=== PATIENT | male | born 1960 | race Caucasian/White ===

== ENCOUNTER 2016-10-02 21:05 | Emergency (ER) | payer OTHER ==
[2016-10-02 21:12] VITALS: BP 144/88; PULSE 109; RESP 20; TEMP 98; O2SAT 100
--- NOTE | 2016-10-02 21:18 | PD ---
Physical Exam Time Seen by Provider: 21:15 Narrative 56yo M c/o RLQ abd pain for multiple years. Has had many surgeries and workups. Says he needs standing CT scan. Patient seen in triage. VS reviewed. Awaiting bed placement. Data Data Last Documented VS Vital Signs Date Time Temp Pulse Resp B/P Pulse Ox O2 Delivery O2 Flow Rate FiO2 10/02/16 21:12 98.0 109 20 144/88 100 Room Air MDM Supervised Visit with MIK: Suzette Gonzalez Oct 02, 2016 21:18
[2016-10-02] MEDS ORDERED: LORazepam 2 MG/ML VIAL IV PUSH ONE (21:45)
[2016-10-02] MEDS ORDERED: MORPHINE SULFATE 4 MG/ML INJ IV PUSH ONE (21:45)
[2016-10-02] MEDS ORDERED: SODIUM CHLORIDE 0.9% FLUSH 10 ML FLUSH IV FLUSH PRN (21:45)
[2016-10-02] MEDS ORDERED: ONDANSETRON HCL 4 MG/2 ML VIAL IVP ONE (21:45)
--- NOTE | 2016-10-02 21:48 | PD ---
HPI Chief Complaint: Abdominal Pain Time Seen by Provider: 21:25 Travel History International Travel<30 days: No Contact w/Intl Traveler<30days: No Traveled to known affect area: No History of Present Illness HPI 56yo M with PMH of anxiety presents to the ED with c/o right lower abdominal pain for 13 years. States he had hernia repair 13 years ago and is requesting to take the mesh out. Pt has seen general surgery, GI, and had full workups. Occasional nausea and vomiting. Denies any fever, chest pain, sob, focal weakness or numbness. Pt was referred to pain management from general surgery and has appointment next week. PFSH Past Medical History Inguinal Hernia: Yes (R with repair) ?: Not Past Surgical History Abdominal Surgery: Yes (choly, hernia mesh repair) Social History Alcohol Use: No Tobacco Use: No Substance Use: No Allergies-Medications (Allergen,Severity, Reaction): Coded Allergies: No Known Allergies (Unverified , 10/02/16) Reported Meds & Prescriptions Reported Meds & Active Scripts Active No Active Prescriptions or Reported Medications Review of Systems Except as stated in HPI: all other systems reviewed are Neg Physical Exam Narrative GENERAL: 56yo M in mild distress. SKIN: Focused skin assessment warm/dry. HEAD: Atraumatic. Normocephalic. EYES: Pupils equal and round. No scleral icterus. No injection or drainage. ENT: No nasal bleeding or discharge. Mucous membranes pink and moist. NECK: Trachea midline. No JVD. CARDIOVASCULAR: Regular rate and rhythm. No murmur appreciated. RESPIRATORY: No accessory muscle use. Clear to auscultation. Breath sounds equal bilaterally. GASTROINTESTINAL: Abdomen soft, +RLQ ttp. No rebound tenderness or guarding. MUSCULOSKELETAL: No obvious deformities. No clubbing. No cyanosis. No edema. NEUROLOGICAL: Awake and alert. No obvious cranial nerve deficits. Motor grossly within normal limits. Normal speech. PSYCHIATRIC: Appropriate mood and affect; insight and judgment normal. Data Data Last Documented VS Vital Signs Date Time Temp Pulse Resp B/P Pulse Ox O2 Delivery O2 Flow Rate FiO2 10/03/16 01:22 80 18 132/76 100 Room Air 10/02/16 21:12 98.0 Orders Complete Blood Count With Diff (10/02/16 21:40) Comprehensive Metabolic Panel (10/02/16 21:40) Lipase (10/02/16 21:40) Urinalysis - C+S If Indicated (10/02/16 21:40) Iv Access Insert/Monitor (10/02/16 21:40) Ecg Monitoring (10/02/16 21:40) Oximetry (10/02/16 21:40) Morphine Inj (Morphine Inj) (10/02/16 21:45) Ondansetron Inj (Zofran Inj) (10/02/16 21:45) Sodium Chloride 0.9% Flush (Ns Flush) (10/02/16 21:45) Lorazepam Inj (Ativan Inj) (10/02/16 21:45) Potassium Chloride (Kcl) (10/03/16 00:15) Magnesium Sulfate 1 Gm Premix (Magnesium (10/03/16 00:15) Ct Abd/Pel W Iv Contrast(Rout) (10/03/16 ) Iohexol 350 Inj (Omnipaque 350 Inj) (10/03/16 00:29) Labs Laboratory Tests Test 10/02/16 22:00 White Blood Count 8.3 TH/MM3 Red Blood Count 4.89 MIL/MM3 Hemoglobin 14.5 GM/DL Hematocrit 41.3 % Mean Corpuscular Volume 84.5 FL Mean Corpuscular Hemoglobin 29.6 PG Mean Corpuscular Hemoglobin 35.0 % Concent Red Cell Distribution Width 13.3 % Platelet Count 295 TH/MM3 Mean Platelet Volume 7.8 FL Neutrophils (%) (Auto) 60.7 % Lymphocytes (%) (Auto) 30.4 % Monocytes (%) (Auto) 8.2 % Eosinophils (%) (Auto) 0.1 % Basophils (%) (Auto) 0.6 % Neutrophils # (Auto) 5.0 TH/MM3 Lymphocytes # (Auto) 2.5 TH/MM3 Monocytes # (Auto) 0.7 TH/MM3 Eosinophils # (Auto) 0.0 TH/MM3 Basophils # (Auto) 0.1 TH/MM3 CBC Comment DIFF FINAL Differential Comment Urine Color LIGHT-YELLOW Urine Turbidity CLEAR Urine pH 7.0 Urine Specific [place] 1.002 Urine Protein NEG mg/dL Urine Glucose (UA) NEG mg/dL Urine Ketones NEG mg/dL Urine Occult Blood NEG Urine Nitrite NEG Urine Bilirubin NEG Urine Urobilinogen LESS THAN 2.0 MG/DL Urine Leukocyte Esterase NEG Urine WBC 1 /hpf Microscopic Urinalysis Comment CULT NOT INDICATED Sodium Level 141 MEQ/L Potassium Level 2.9 MEQ/L Chloride Level 106 MEQ/L Carbon Dioxide Level 23.1 MEQ/L Anion Gap 12 MEQ/L Blood Urea Nitrogen 7 MG/DL Creatinine 0.77 MG/DL Estimat Glomerular Filtration 105 ML/MIN Rate Random Glucose 88 MG/DL Calcium Level 9.1 MG/DL Total Bilirubin 0.4 MG/DL Aspartate Amino Transf 16 U/L (AST/SGOT) Alanine Aminotransferase 29 U/L (ALT/SGPT) Alkaline Phosphatase 88 U/L Total Protein 8.1 GM/DL Albumin 3.9 GM/DL Lipase 105 U/L [facility] Medical Decision Making Medical Screen Exam Complete: Yes Emergency Medical Condition: Yes Differential Diagnosis Malingering vs. anxiety vs. colitis vs. appendicitis (very unlikely) Narrative Course 56yo M with chronic abdominal pain. Pt is very anxious and usually goes to [place] and has never been to this hospital before. Pt is very tender on exam and since he has never had any imaging here, will obtain CTa/p. Labs reviewed, no leukocytosis. Hypokalemia at 2.9. 60mEq KCl PO given. Pt empirically given magnesium sulfate 1gm IV. LFTs normal. Lipase normal. Pt tolerating PO. Instructed pt to eat potassium rich food. UA negative. CT abd /pelvis showed normal exam post cholecystectomy. Appendix is normal. Pt given morphine 4mg, zofran and ativan. States pain has improved. Pt has appointment with pain management next week. Return precautions given. Diagnosis Primary Impression: Abdominal pain Qualified Code: R10.31 - Right lower quadrant abdominal pain Additional Impression: Hypokalemia Patient Instructions: General Instructions Departure Forms: Tests/Procedures Additional Instructions: Please follow up with your pain management physician. Please eat potassium rich food. Please return to the ED if symptoms worsen. Med/Other Pt SpecificInfo: Prescription(s) given Scripts Ibuprofen 400 Mg [id number] Mg PO Q8H PRN (PAIN SCALE 1 TO 4) #20 TAB Ref 0 Prov:Krystin Munoz 10/03/16 Disposition: 01 DISCHARGE HOME Condition: Stable Krystin Munoz DO Oct 02, 2016 21:48
[2016-10-02 22:19] LABS: BASOPHIL # 0.1 TH/MM3 (0-0.2); BASOPHIL % 0.6 % (0.0-2.0); BLOOD, URINE NEG (NEG); COMMENT (UR) CULT NOT INDICATED; CULTURE IF INDICATED CULT NOT INDICATED; EOSINOPHIL % 0.1 % (0.0-4.0); GLUCOSE,URINE NEG (NEG); HEMATOCRIT 41.3 % (39.0-51.0); HEMO FLAGS DIFF FINAL; KETONE, URINE NEG (NEG); LYMPH % 30.4 % (9.0-44.0); LYMPHOCYTE # 2.5 TH/MM3 (1.0-4.8); MEAN CELL VOLUME 84.5 FL (80.0-100.0); MEAN CORPUSCULAR HEMOGLOBIN 29.6 PG (27.0-34.0); MONO % 8.2 % (0.0-8.0); NEUT % 60.7 % (16.0-70.0); NITRITE,URINE NEG (NEG); PLATELET COUNT 295 TH/MM3 (150-450); RED BLOOD COUNT 4.89 MIL/MM3 (4.50-5.90); RED CELL DISTRIBUTION WIDTH 13.3 % (11.6-17.2); URINE COLOR LIGHT-YELLOW (YELLW/STRAW); WHITE BLOOD COUNT 8.3 TH/MM3 (4.0-11.0)
[2016-10-02 22:24] VITALS: BP 136/77; PULSE 84; RESP 16; O2SAT 97
[2016-10-02 23:53] LABS: ALKALINE PHOSPHATASE 88 U/L (45-117); ALT (GPT) 29 U/L (12-78); ANION GAP 12 MEQ/L (5-15); AST (GOT) 16 U/L (15-37); BICARBONATE 23.1 MEQ/L (21.0-32.0); BLOOD UREA NITROGEN 7 MG/DL (7-18); CHLORIDE 106 MEQ/L (98-107); GLOMERULAR FILTRATION RATE 105 ML/MIN (>89); SODIUM (NA) 141 MEQ/L (136-145); TOTAL BILIRUBIN ADULT 0.4 MG/DL (0.2-1.0)
[2016-10-03 00:01] LABS: POTASSIUM 2.9 MEQ/L (3.5-5.1)
[2016-10-03] MEDS ORDERED: POTASSIUM CHLORIDE 20 MEQ CONTROLLED RELEASE TAB PO ONE (00:15)
[2016-10-03] MEDS ORDERED: MAGNESIUM SULFATE 1 GM PREMIX 100 ML IV ONE (00:15)
[2016-10-03] MEDS ORDERED: IOHEXOL 350 MG/ML 10 ML VIAL (for RAD DIAG) IV ONE (00:29)
--- NOTE | 2016-10-03 00:35 | RADRPT ---
EXAM DATE/TIME: 10/03/2016 00:16 [facility] COMPARISON: No previous studies available for comparison. INDICATIONS : Right side abdominal pain. IV CONTRAST: 65 cc Omnipaque 350 (iohexol) IV ORAL CONTRAST: No oral contrast ingested. RADIATION DOSE: 6.40 CTDIvol (mGy) MEDICAL HISTORY : Hernia, inguinal. SURGICAL HISTORY : Inguinal hernia repair. Cholecystectomy. ENCOUNTER: Initial ACUITY: 1 day PAIN SCALE: 8/10 LOCATION: Right abdominal. TECHNIQUE: Volumetric scanning of the abdomen and pelvis was performed. Using automated exposure control and ad justment of the mA and/or kV according to patient size, radiation dose was kept as low as reasonably achievable to obtain optimal diagnostic quality images. FINDINGS: LOWER LUNGS: The visualized lower lungs are clear. LIVER: Homogeneous density without lesion. There is no dilation of the biliary tree. Cholecystectomy clips. SPLEEN: Normal size without lesion. PANCREAS: Within normal limits. KIDNEYS: Normal in size and shape. There is no mass, stone or hydronephrosis. ADRENAL GLANDS: Within normal limits. VASCULAR: There is no aortic aneurysm. BOWEL/MESENTERY: The stomach, small bowel, and colon demonstrate no acute abnormality. There is no free intraperitone al air or fluid. ABDOMINAL WALL: Within normal limits. RETROPERITONEUM: There is no lymphadenopathy. BLADDER: No wall thickening or mass. REPRODUCTIVE: Within normal limits. INGUINAL: There is no lymphadenopathy or hernia. MUSCULOSKELETAL: Within normal limits for patient age. CONCLUSION: Normal examination status post cholecystectomy. The appendix is normal. Uri Mata MD on October 03, 2016 at 0:33 Board Certified Radiologist. This report was verified electronically.
[2016-10-03 01:22] VITALS: BP 132/76; PULSE 80; RESP 18; O2SAT 100
[2016-10-03] MEDS ORDERED: IBUP400T20 PO (01:42)
== END 2016-10-03 01:50 | disposition home or self-care (01) ==
LOC: NEPC 21:05
DX: R10.31 Right lower quadrant pain (principal); E87.6 Hypokalemia
CPT/HCPCS: 74177; 80053; 81001; 83690; 85025; 96374; 96375; 99285; J2060; J2270; J2405; J3475; Q9967